=== PATIENT | male | born 1960 | race Caucasian/White ===

== ENCOUNTER 2020-10-30 07:36 | Day surgery (SDC) | payer OTHER, MEDICARE ==
--- NOTE | 2020-10-30 08:21 | PCM.PREANE ---
Preanesthetic Assessment - Procedure Proposed Procedure: EGD, Colonoscopy - Anesthesia/Transfusion/Family Hx Anesthesia History: Prior Anesthesia Without Reaction Family History of Anesthesia Reaction: No Transfusion History: No Prior Transfusion(s) - Review of Systems General: No Symptoms Pulmonary: No Symptoms Cardiovascular: No Symptoms (HTN, HLD) Gastrointestinal: No Symptoms (H/O Polyps, H/O Pancreatitis) Neurological: No Symptoms Other: Reports: None - Physical Assessment NPO Status Date: 10/28/20 NPO Status Time: 16:00 Vital Signs: Last Vital Signs Temp 97.2 F 10/30/20 07:54 Pulse 72 10/30/20 07:54 Resp 16 10/30/20 07:54 BP 143/96 H 10/30/20 07:54 Pulse Ox 96 10/30/20 07:54 Height: 5 ft 9 in Weight: 78.018 kg ASA Class: 2 Mental Status: Alert & Oriented x3 Airway Class: Mallampati = 3 Dentition: Reports: Normal Dentition Thyro-Mental Finger Breadths: 3 Mouth Opening Finger Breadths: 2 ROM/Head Extension: Full Lungs: Clear to Auscultation, Normal Respiratory Effort Cardiovascular: Regular Rate, Regular Rhythm - Allergies Allergies/Adverse Reactions: Allergies Allergy/AdvReac Type Severity Reaction Status Date / Time No Known Allergies Allergy Verified 10/30/20 08:10 - Acknowledgements Anesthesia Type Planned: General Anesthesia Pt an Appropriate Candidate for the Planned Anesthesia: Yes Alternatives and Risks of Anesthesia Discussed w Pt/Guardian: Yes Pt/Guardian Understands and Agrees with Anesthesia Plan: Yes PreAnesthesia Questionnaire HEENT History: Reports: Other (See Below) Other HEENT History: wears glasses for driving, has front upper dental flipper Cardiovascular History: Reports: Heart Murmur, High Cholesterol, Hypertension Respiratory History: Reports: None Gastrointestinal History: Reports: Colon Polyp, Pancreatitis Other Gastrointestinal History: hx barretts esophagus Genitourinary History: Reports: None Musculoskeletal History: Reports: Fracture, RA Neurological History: Reports: None Psychiatric History: Reports: None Endocrine/Metabolic History: Reports: None Hematologic History: Reports: None Immunologic History: Reports: None Oncologic (Cancer) History: Reports: None Dermatologic History: Reports: None - Past Surgical History Head Surgeries/Procedures: Reports: None Cardiovascular Surgical History: Reports: None Respiratory Surgical History: Reports: None GI Surgical History: Reports: Colonoscopy, EGD Male Surgical History: Reports: None Endocrine Surgical History: Reports: None Neurological Surgical History: Reports: None Musculoskeletal Surgical History: Reports: Other (See Below) Other Musculoskeletal Surgeries/Procedures:: elbow surgery x3, right ankle reconstruction, surgery for hammer toes to left foot Oncologic Surgical History: Reports: None Dermatological Surgical History: Reports: None - SUBSTANCE USE Tobacco Use Status *Q: Never Tobacco User Days Per Week of Alcohol Use: 7 Number of Drinks Per Day: 5 Total Drinks Per Week: 35 - HOME MEDS Home Medications: Home Meds Hydrocodone/Acetaminophen [HYDROcodone-Acetaminophen 5-325 MG] 1 tab PO Q4H PRN 10/27/20 [History] Ibuprofen 800 mg PO ASDIRECTED PRN 10/27/20 [History] atorvaSTATin [Lipitor] 20 mg PO DAILY 10/27/20 [History] carvediloL [Carvedilol] 12.5 mg PO DAILY 10/27/20 [History] predniSONE [Prednisone] 10 mg PO DAILY 10/27/20 [History] traMADol HCl [Tramadol HCl ER] 200 mg PO DAILY 10/27/20 [History] - CURRENT (IN HOUSE) MEDS Current Meds: Current Medications Lactated Ringer's (Ringers, Lactated) 1,000 mls @ 125 mls/hr IV ASDIRECTED JACKIE Cefoxitin Sodium 2 gm/ Premix 50 mls @ 100 mls/hr IV ONETIME ONE Stop: 10/30/20 09:29
[2020-10-30] MEDS ORDERED: propofoL 50 ML ONE (08:51)
[2020-10-30] MEDS ORDERED: fentaNYL 100 MCG/2 ML SDV ONE (08:52)
[2020-10-30] MEDS ORDERED: cefOXitin 2 GM in Premix Bag 1 BAG IV ONE (09:00)
[2020-10-30] MEDS ORDERED: Lactated Ringers 1,000 ML IV SCH ×2 (09:00→10:00)
[2020-10-30] MEDS ORDERED: cefOXitin 100 ML ONE (09:12)
[2020-10-30] MEDS ORDERED: Propofol 200 MG/20 ML SDV ONE (09:51)
--- NOTE | 2020-10-30 10:03 | PCM.POSTAN ---
POST ANESTHESIA ASSESSMENT - MENTAL STATUS Mental Status: Alert, Oriented - VITAL SIGNS Vital Signs: Last Vital Signs Temp 97.2 F 10/30/20 07:54 Pulse 72 10/30/20 07:54 Resp 16 10/30/20 07:54 BP 143/96 H 10/30/20 07:54 Pulse Ox 96 10/30/20 07:54 - RESPIRATORY Respiratory Status: Respiratory Rate WNL, Airway Patent, O2 Saturation Stable - CARDIOVASCULAR CV Status: Pulse Rate WNL, Blood Pressure Stable - GASTROINTESTINAL GI Status: No Symptoms - PAIN Pain Score: 0 - POST OP HYDRATION Hydration Status: Adequate & Stable
--- NOTE | 2020-10-30 10:05 | PCM.OPNOTE ---
- General Post-Op/Procedure Note Date of Surgery/Procedure: 10/30/20 Operative Procedure(s): Esophagogastroduodenoscopy with gastric and distal esophageal biopsies. Colonoscopy with cold distal transverse colon polypectomy. Pre Op Diagnosis: History of Yap's esophagus. Personal history of colon polyps. Post-Op Diagnosis: Chronic gastritis. Distal esophagitis with possible Yap's esophagus. Distal transverse colon polyp. Mild harrison colonic diverticulosis. Anesthesia Technique: MAC (ASA II) Primary Surgeon: Tadeo Madera Asset Accountant: Nayely Jones Condition: Good Free Text/Narrative:: DICTATION [id number] CPT CODE [id number]
--- NOTE | 2020-10-30 10:05 | PCM48HPAN ---
Post Anesthesia Note - EVALUATION WITHIN 48HRS OF ANESTHETIC Vital Signs in Normal Range: Yes Patient Participated in Evaluation: Yes Respiratory Function Stable: Yes Airway Patent: Yes Cardiovascular Function Stable: Yes Hydration Status Stable: Yes Pain Control Satisfactory: Yes Nausea and Vomiting Control Satisfactory: Yes Mental Status Recovered: Yes Vital Signs: Last Vital Signs Temp 98.1 F 10/30/20 09:58 Pulse 66 10/30/20 10:04 Resp 16 10/30/20 10:04 BP 112/74 10/30/20 10:04 Pulse Ox 98 10/30/20 10:04 - COMMENTS/OBSERVATIONS Free Text/Narrative:: Pt doing well post-op, VSS. No apparent anesthetic complications. Dr. Jeff Bella
--- NOTE | 2020-10-30 16:14 | OR ---
SURGEON: Tadeo Madera M.D. DATE OF PROCEDURE: 10/30/2020 OPERATION PERFORMED: Colonoscopy with cold distal transverse colon polypectomy. PRIMARY SURGEON: Tadeo Madera M.D. FUNERAL SERVICE APPRENTICE: Building Supervisor: Nayely Jones, nurse practitioner student. ANESTHESIA: MAC. ASA CLASSIFICATION: II. PREOPERATIVE DIAGNOSIS: Personal history of colon polyps. POSTOPERATIVE DIAGNOSES: 1. Distal transverse colon polyp. 2. Very mild pancolonic diverticulosis. DESCRIPTION OF PROCEDURE: With the patient having completed upper GI endoscopy, he was maintained in the left lateral decubitus position. The colonoscope was inserted into the rectum and advanced with minimal difficulty to the cecum. The cecum was identified by internal landmarks and external pressure. The colonoscope was retroflexed to visualize the ascending colon from below and then straightened and slowly withdrawn. The cecum, ascending colon, hepatic flexure, proximal and mid transverse colon showed no tumors or polyps. A few small scattered diverticula were noted. One small polyp was encountered in the distal transverse colon and removed in its entirety with the cold biopsy forceps. The splenic flexure and descending colon showed no tumors, polyps, diverticula, or angiodysplastic changes. A few small scattered diverticula were noted in the sigmoid colon. No polyps were encountered. The colonoscope was then withdrawn to the rectum and retroflexed to visualize the anal orifice from above. No tumors, polyps, or acute hemorrhoidal changes were noted. The colonoscope was then straightened, the rectum aspirated, and the colonoscope removed. The patient tolerated the procedure well and was taken to recovery room in stable condition. BARYAN / KRHIS /[id number]
--- NOTE | 2020-10-30 16:14 | OR ---
SURGEON: Tadeo Madera M.D. DATE OF PROCEDURE: 10/30/2020 OPERATION PERFORMED: Esophagogastroduodenoscopy with gastric and esophageal biopsies. PRIMARY SURGEON: Tadeo Madera M.D. ARCHITECTURAL PROJECT MANAGER: Repairer Hairspring: Nayely Jones NP student. ANESTHESIA: MAC. ASA CLASSIFICATION: II. PREOPERATIVE DIAGNOSIS: History of Yap esophagus. POSTOPERATIVE DIAGNOSES: 1. Chronic gastritis. 2. Distal esophagitis with possible Yap. DESCRIPTION OF PROCEDURE: The patient was taken to the endoscopy room and positioned on the endoscopy table in the left lateral decubitus position. Time-out was called for appropriate identification of the patient and procedure. Monitored anesthesia care was provided. The bite block was placed between the patient's teeth. The gastroscope was inserted through the bite block and advanced without difficulty through the esophagus and stomach into the duodenum where examination was now carried out in a retrograde fashion. The duodenum showed no acute inflammatory changes or ulcerations. The pylorus is patulous. The distal stomach did show mild appearing gastritis. Antral biopsies were obtained to look for the presence of Helicobacter pylori. The gastroscope was then retroflexed to visualize the proximal stomach which did show a hiatal hernia. No acute inflammatory lesions were noted in the proximal stomach and no gastric polyps were encountered. The gastroscope was then straightened and slowly withdrawn. The greater curvature and lesser curvature were well visualized and showed no tumors or polyps. The GE junction was well defined, but does show changes consistent with esophagitis and possible Yap esophagus. Multiple biopsies of the distal esophagus at 38 cm were obtained. The esophagus demonstrated good contractility. No mid or proximal lesions were identified. The vocal cords were briefly visualized as the scope was withdrawn and noted to move symmetrically. The gastroscope was then removed with the patient having tolerated this portion of the procedure well. Following colonoscopy, he was taken to recovery room in stable condition. BRAYAN / KHRIS /[id number]
== END 2020-10-30 10:27 | disposition home or self-care (01) ==
LOC: MW.SDS 07:36
PROVIDERS: ATTEND Surgery
DX: Z12.11 Encounter for screening for malignant neoplasm of colon (principal); D12.3 Benign neoplasm of transverse colon; K57.30 Diverticulosis of large intestine without perforation or abscess without bleeding; K22.70 Barrett's esophagus without dysplasia; M06.9 Rheumatoid arthritis, unspecified; I10 Essential (primary) hypertension; K29.50 Unspecified chronic gastritis without bleeding; K20.90 Esophagitis, unspecified without bleeding; Z79.899 Other long term (current) drug therapy; Z98.890 Other specified postprocedural states
CPT/HCPCS: 43239; 45380; 88305; 88342; J0694; J2704; J3010; 00813

== ENCOUNTER 2021-01-01 07:01 | Day surgery (SDC) | payer OTHER, MEDICARE ==
[~2021-01-01 07:01] MED LIST: Lactated Ringers 1,000 ML IV SCH; ceFAZolin 2 GM in Premix Bag 1 BAG IV ONE
--- NOTE | 2021-01-01 07:14 | PCM.PREANE ---
Preanesthetic Assessment - Anesthesia/Transfusion/Family Hx Anesthesia History: Prior Anesthesia Without Reaction Transfusion History: No Prior Transfusion(s) - Review of Systems General: No Symptoms Pulmonary: No Symptoms Cardiovascular: No Symptoms Gastrointestinal: No Symptoms Neurological: No Symptoms Other: Reports: None - Physical Assessment NPO Status Date: 12/31/20 NPO Status Time: 21:00 Height: 5 ft 9 in Weight: 80.286 kg ASA Class: 3 Mental Status: Alert & Oriented x3 Airway Class: Mallampati = 2 Dentition: Reports: Normal Dentition, Partial Thyro-Mental Finger Breadths: 3 Mouth Opening Finger Breadths: 3 ROM/Head Extension: Full Lungs: Clear to Auscultation, Normal Respiratory Effort Cardiovascular: Regular Rate, Regular Rhythm - Allergies Allergies/Adverse Reactions: Allergies Allergy/AdvReac Type Severity Reaction Status Date / Time No Known Allergies Allergy Verified 12/26/20 15:12 - Anesthesia Plan Beta Kenrick: Carvedilol Med Last Dose Date: 01/01/21 Med Last Dose Time: 06:00 - Acknowledgements Anesthesia Type Planned: General Anesthesia Pt an Appropriate Candidate for the Planned Anesthesia: Yes Alternatives and Risks of Anesthesia Discussed w Pt/Guardian: Yes Pt/Guardian Understands and Agrees with Anesthesia Plan: Yes PreAnesthesia Questionnaire HEENT History: Reports: Macular Degeneration, Other (See Below) Other HEENT History: uses glasses for driving Cardiovascular History: Reports: Hypertension Other Cardiovascular History: states he has a "slight murmur" - has not had it checked for a long time Respiratory History: Reports: None Gastrointestinal History: Reports: Colon Polyp Other Gastrointestinal History: hx barretts esophagus Genitourinary History: Reports: None Musculoskeletal History: Reports: RA Other Musculoskeletal History: states hx of "multiple" fx Neurological History: Reports: Other (See Below) Other Neuro History: hx of Raynauds disease- takes Amlodipine in the winter for it Psychiatric History: Reports: None Endocrine/Metabolic History: Reports: None Hematologic History: Reports: None Immunologic History: Reports: Immunosuppression Oncologic (Cancer) History: Reports: None Dermatologic History: Reports: Psoriasis - Past Surgical History Head Surgeries/Procedures: Reports: None Cardiovascular Surgical History: Reports: None GI Surgical History: Reports: EGD Male Surgical History: Reports: None Musculoskeletal Surgical History: Reports: Other (See Below) Other Musculoskeletal Surgeries/Procedures:: bilateral total ankle arthropl asties, hammer toe repair on toes left foot (has hardware) , elbow surgery x3- had tendon repair and it became infected - SUBSTANCE USE Tobacco Use Status *Q: Never Tobacco User Recreational Drug Use History: No - HOME MEDS Home Medications: Home Meds Hydrocodone/Acetaminophen [HYDROcodone-Acetaminophen 5-325 MG] 1 tab PO Q4H PRN 10/27/20 [History] Ibuprofen 800 mg PO ASDIRECTED PRN 10/27/20 [History] atorvaSTATin [Lipitor] 20 mg PO DAILY 10/27/20 [History] carvediloL [Carvedilol] 12.5 mg PO BID 10/27/20 [History] predniSONE [Prednisone] 10 mg PO DAILY 10/27/20 [History] traMADol HCl [Tramadol HCl ER] 200 mg PO DAILY 10/27/20 [History] - CURRENT (IN HOUSE) MEDS Current Meds: Current Medications Lactated Ringer's (Ringers, Lactated) 1,000 mls @ 125 mls/hr IV ASDIRECTED JACKIE Discontinued Medications Cefazolin Sodium/Dextrose 2 gm (/ Premix) 50 mls @ 100 mls/hr IV ONETIME ONE Stop: 01/01/21 06:29
[2021-01-01] MEDS ORDERED: Naloxone 0.4 MG/ML SDV IVPUSH PRN (07:24)
[2021-01-01] MEDS ORDERED: Metoclopramide 10 MG/2 ML SDV IVPUSH PRN (07:24)
[2021-01-01] MEDS ORDERED: fentaNYL 100 MCG/2 ML SDV IVPUSH PRN (07:24)
[2021-01-01] MEDS ORDERED: Morphine 2 MG/ML SYRINGE IVPUSH PRN ×2 (07:24→08:56)
[2021-01-01] MEDS ORDERED: Albuterol 0.083% 2.5 MG/3 ML Neb Soln NEB PRN (07:24)
[2021-01-01] MEDS ORDERED: HYDROmorphone 1 MG/ML Syringe IVPUSH PRN (07:24)
[2021-01-01] MEDS ORDERED: Ondansetron 4 MG/2 ML SDV IVPUSH PRN ×2 (07:24→08:56)
[2021-01-01] MEDS ORDERED: Rocuronium Bromide 50 MG/5 ML Syringe ONE (07:32)
[2021-01-01] MEDS ORDERED: Dexmedetomidine 200 MCG/2 ML SDV ONE (07:32)
[2021-01-01] MEDS ORDERED: Lidocaine 2% 5 ML SDV ONE (07:32)
[2021-01-01] MEDS ORDERED: fentaNYL 100 MCG/2 ML SDV ONE (07:33)
[2021-01-01] MEDS ORDERED: Propofol 200 MG/20 ML SDV ONE (07:33)
[2021-01-01] MEDS ORDERED: Sodium Chloride 0.9% 20 ML ONE (07:37)
[2021-01-01] MEDS ORDERED: Midazolam 1 MG/ML 2 ML SDV ONE (07:39)
[2021-01-01] MEDS ORDERED: Bupivacaine 0.5% 30 ML SDV ONE (07:47)
[2021-01-01] MEDS ORDERED: ceFAZolin 1 GM Vial ONE (07:47)
[2021-01-01] MEDS ORDERED: Dexamethasone 4 MG/ML 5 ML MDV ONE (08:22)
[2021-01-01] MEDS ORDERED: ePHEDrine 50 MG/ML SDV ONE (08:22)
[2021-01-01] MEDS ORDERED: Ketorolac 30 MG/ML SDV ONE (08:27)
[2021-01-01] MEDS ORDERED: Ondansetron 4 MG/2 ML SDV ONE (08:27)
[2021-01-01] MEDS ORDERED: Sugammadex Sodium 200 MG/2 ML VIAL ONE (08:27)
[2021-01-01] MEDS ORDERED: Acetaminophen/HYDROcodone 325-5 MG Tab PO PRN (08:56)
[2021-01-01] MEDS ORDERED: Lactated Ringers 1,000 ML IV SCH (09:00)
--- NOTE | 2021-01-01 09:05 | PCM.OPNOTE ---
- General Post-Op/Procedure Note Date of Surgery/Procedure: 01/01/21 Operative Procedure(s): Repair incarcerated umbilical hernia Pre Op Diagnosis: Incarcerated umbilical hernia Post-Op Diagnosis: Same Anesthesia Technique: General ET Tube (ASA III) Primary Surgeon: Tadeo Madera Rack Loader: Kellie Rodriguez Reason Rack Loader Was Necessary: Exposure. Fluid Replacement, Intraop: 1,000 EBL in mLs: 2 Condition: Good Free Text/Narrative:: DICTATION [id number] CPT CODE [id number]
--- NOTE | 2021-01-01 09:25 | PCM.POSTAN ---
POST ANESTHESIA ASSESSMENT - MENTAL STATUS Mental Status: Alert, Oriented - VITAL SIGNS Vital Signs: Last Vital Signs Temp 97.0 F 01/01/21 08:54 Pulse 64 01/01/21 09:15 Resp 10 L 01/01/21 09:15 BP 137/80 01/01/21 09:15 Pulse Ox 98 01/01/21 09:15 - RESPIRATORY Respiratory Status: Respiratory Rate WNL, Airway Patent, O2 Saturation Stable - CARDIOVASCULAR CV Status: Pulse Rate WNL, Blood Pressure Stable - GASTROINTESTINAL GI Status: No Symptoms - POST OP HYDRATION Hydration Status: Adequate & Stable
--- NOTE | 2021-01-01 09:25 | PCM48HPAN ---
Post Anesthesia Note - EVALUATION WITHIN 48HRS OF ANESTHETIC Vital Signs in Normal Range: Yes Patient Participated in Evaluation: Yes Respiratory Function Stable: Yes Airway Patent: Yes Cardiovascular Function Stable: Yes Hydration Status Stable: Yes Pain Control Satisfactory: Yes Nausea and Vomiting Control Satisfactory: Yes Mental Status Recovered: Yes Vital Signs: Last Vital Signs Temp 97.0 F 01/01/21 08:54 Pulse 64 01/01/21 09:15 Resp 10 L 01/01/21 09:15 BP 137/80 01/01/21 09:15 Pulse Ox 98 01/01/21 09:15
--- NOTE | 2021-01-01 15:11 | OR ---
SURGEON: Tadeo Madera M.D. DATE OF PROCEDURE: 01/01/2021 OPERATION PERFORMED: Repair, incarcerated umbilical hernia. PRIMARY SURGEON: Tadeo Madera M.D. GUT SNATCHER: Environmental Technical Officer: MARIA GUADALUPE Marquez video library assistant. ANESTHESIA: General endotracheal. ASA CLASSIFICATION: III. PREOPERATIVE DIAGNOSIS: Incarcerated umbilical hernia. POSTOPERATIVE DIAGNOSIS: Incarcerated umbilical hernia. ESTIMATED BLOOD LOSS: 2 mL. INTRAOPERATIVE FLUID REPLACEMENT: 1000 mL of crystalloid. DESCRIPTION OF PROCEDURE: The patient was taken to the operating room and placed on the operating table in the supine position. The surgical site had been marked prior to the patient entering the operating room. Time-out was called for appropriate identification of patient and procedure. Following satisfactory attainment of general endotracheal anesthesia, the abdomen was prepped with DuraPrep solution and sterile drapes were applied. The skin just to the right of the umbilicus was infiltrated with 10 mL of 0.5% Marcaine solution. Skin incision was made and deepened through the subcutaneous tissue obtaining hemostasis with the use of electrocautery. Once that was accomplished, the umbilicus was mobilized and dissection was carried down to the fascia where the incarcerated hernia sac was sharply dissected away from the overlying umbilical base and then reduced. The defect was approximately 1 cm in greatest dimension. This was repaired with multiple interrupted 0 Ethibond sutures. All sutures were placed under direct vision and held until the final suture had been placed. Once the sutures were tied down, the patient was given a Valsalva maneuver to 40 cm of water. The repair was solid. The wound was then inspected for hemostasis and small bleeding sites were electrocoagulated. The subcutaneous tissue was closed with running 3-0 Vicryl. The skin edges were reapproximated with subcuticular 4-0 Monocryl reinforced with half-inch Steri-Strips. The incision was then dressed with a sterile Tegaderm pad. Sponge, needle, and instrument counts were all correct. The patient did tolerate the procedure well. Following emergence from anesthesia and extubation, the patient was taken to recovery room in stable condition. BRAYAN PINEDO /[id number]
== END 2021-01-01 10:00 | disposition home or self-care (01) ==
LOC: MW.SDS 07:01
PROVIDERS: ATTEND Surgery
DX: K42.0 Umbilical hernia with obstruction, without gangrene (principal); E78.5 Hyperlipidemia, unspecified; I10 Essential (primary) hypertension; M06.9 Rheumatoid arthritis, unspecified; Z79.899 Other long term (current) drug therapy; Z98.890 Other specified postprocedural states
CPT/HCPCS: 49587; J0131; J0690; J1100; J1885; J2250; J2704; J3010; J3490; J7120; 00750; J2405